=== PATIENT | female | born 1955 | race Caucasian/White ===

== ENCOUNTER 2018-10-10 08:25 | Day surgery (SDC) | payer BC ==
[~2018-10-10] VITALS: Ht 170.2 cm; Wt 88.9 kg
[2018-10-10] MEDS ORDERED: LACTATED RINGERS 1,000 ML IV SCH (09:03)
[2018-10-10] MEDS ORDERED: RIVA20TA PO (09:19)
[2018-10-10] MEDS ORDERED: CHOL100012 PO (09:19)
[2018-10-10] MEDS ORDERED: FERROUS SULFATE PO (09:19)
[2018-10-10] MEDS ORDERED: LOPRESSOR PO (09:19)
[2018-10-10] MEDS ORDERED: ASPI-496 PO (09:19)
[2018-10-10] MEDS ORDERED: ATORVASTATIN PO (09:19)
[2018-10-10 09:25] VITALS: BP 112/76
[2018-10-10 10:19] LABS: BASOPHILS # (AUTO) 0.02 x10^3/uL (0-0.1); BASOPHILS % (AUTO) 0 % (0-1); EOSINOPHILS # (AUTO) 0.04 x10^3/uL (0-0.4); EOSINOPHILS % (AUTO) 1 % (1-7); LYMPHOCYTES # (AUTO) 1.46 x10^3/uL (1-3.4); LYMPHOCYTES % (AUTO) 22 % (22-44); MD NO; MEAN CORPUSCULAR HEMOGLOBIN 24.1 pg (27.0-34.8); MEAN CORPUSCULAR HGB CONC 30.7 g/dL (32.4-35.8); MEAN CORPUSCULAR VOLUME 78.5 fL (80-100); MEAN PLATELET VOLUME 6.3 fL (7.4-10.4); MONOCYTES # (AUTO) 0.31 x10^3/uL (0.2-0.8); MONOCYTES % (AUTO) 5 % (2-9); NEUTROPHILS % (AUTO) 72 % (42-75); PLATELET COUNT 479 x10^3/uL (130-400); RED CELL DISTRIBUTION WIDTH 20.4 % (9.6-15.2)
[2018-10-10 10:30] LABS: INTERNATIONAL NORMALIZED RATIO 0.95 (0.93-1.1)
[2018-10-10 10:31] LABS: ANION GAP 6 mmol/L (5-15); CALCIUM 9.1 mg/dL (8.5-10.1); CHLORIDE 108 mmol/L (98-107)
[2018-10-10 10:36] LABS: ALANINE AMINOTRANSFERASE 15 U/L (12-78); ALKALINE PHOSPHATASE 136 U/L (45-117); BILIRUBIN,TOTAL 0.4 mg/dL (0.2-1.0); CREATININE 0.56 mg/dL (0.55-1.02); TOTAL PROTEIN 6.9 g/dL (6.4-8.2)
[2018-10-10] MEDS ORDERED: BUPIVACAINE/PF 0.25% ONE (13:48)
[2018-10-10] MEDS ORDERED: HEPARIN 5,000 UNITS/ML, 1ML ONE (13:48)
[2018-10-10] MEDS ORDERED: EPINEPHRINE 1 MG/ML, 1ML ONE (13:49)
[2018-10-10] MEDS ORDERED: MIDAZOLAM 1 MG/ML, 2ML ONE (13:56)
[2018-10-10] MEDS ORDERED: ONDANSETRON 2MG/ML, 2ML ONE (13:58)
[2018-10-10] MEDS ORDERED: DEXAMETHASONE 4 MG/ML, 1ML ONE (13:58)
[2018-10-10] MEDS ORDERED: PROPOFOL 10 MG/ML, 20ML ONE (13:58)
[2018-10-10] MEDS ORDERED: VANCOMYCIN 500 MG ONE (14:25)
[2018-10-10] MEDS ORDERED: HYDROmorphone 2 MG/ML, 1ML IVPush PRN (14:30)
[2018-10-10] MEDS ORDERED: KETOROLAC 30 MG/1 ML IV PRN ×2 (14:30)
[2018-10-10] MEDS ORDERED: FENTANYL PF 100 MCG/2ML IV PRN (14:30)
[2018-10-10] MEDS ORDERED: KETOROLAC 30 MG/1 ML IM PRN ×2 (14:30)
[2018-10-10] MEDS ORDERED: MORPHINE SULFATE 4 MG/ML, 1ML IVPush PRN (14:30)
[2018-10-10] MEDS ORDERED: MEPERIDINE/PF 25MG/0.5ML IVPush PRN (14:30)
[2018-10-10] MEDS ORDERED: ACETAMINOPHEN 325 MG TABLET PO PRN (14:30)
[2018-10-10] MEDS ORDERED: HYDROcodone/APAP 7.5-325MG/15ML UDC PO PRN (14:30)
[2018-10-10] MEDS ORDERED: OXYcodone 5 MG/5 ML ORAL.SOL UDC PO PRN (14:30)
[2018-10-10] MEDS ORDERED: FENTANYL PF 100 MCG/2ML ONE (14:55)
[2018-10-10] MEDS ORDERED: VISIPAQUE 270 MG/ML, 50ML BOTTLE ONE (15:07)
[2018-10-10] MEDS ORDERED: OXYcodone 5 MG/5 ML ORAL.SOL UDC ONE (15:14)
[2018-10-10] MEDS ORDERED: ACETAMINOPHEN 650 MG/20.3 ML UDC ONE (15:14)
== END 2018-10-10 16:55 | disposition home or self-care (01) ==
LOC: OUT 08:25
PROVIDERS: ATTEND Specialist
DX: Z45.2 Encounter for adjustment and management of vascular access device (principal); C56.9 Malignant neoplasm of unspecified ovary; I10 Essential (primary) hypertension; I48.91 Unspecified atrial fibrillation; E78.5 Hyperlipidemia, unspecified; Z98.890 Other specified postprocedural states; Z86.718 Personal history of other venous thrombosis and embolism; Z79.82 Long term (current) use of aspirin; Z87.891 Personal history of nicotine dependence
CPT/HCPCS: 36415; 36561; 77001; 80053; 85025; 85610; 85730; 93005; C1788; J0171; J1100; J1644; J2250; J2405; J2704; J3010; J3370; J3490; Q9966

== ENCOUNTER → 2021-01-03 | Outpatient (CLI) | payer BC ==
[~2021-01-03] MED LIST: ASPI-496 PO; ATORVASTATIN PO; CHOL100012 PO; FERROUS SULFATE PO; LOPRESSOR PO; METO50TA82 PO; MULT-658 PO; RIVA20TA PO
[2021-01-03 08:41] LABS: BASOPHILS % (AUTO) 1 % (0-1); EOSINOPHILS % (AUTO) 1 % (1-7); LYMPHOCYTES % (AUTO) 27 % (22-44); MEAN CORPUSCULAR HGB CONC 34.4 g/dL (32.4-35.8); MEAN PLATELET VOLUME 7.9 fL (7.4-10.4); MONOCYTES % (AUTO) 6 % (2-9); NEUTROPHILS % (AUTO) 65 % (42-75); PLATELET COUNT 172 x10^3/uL (130-400); RED BLOOD COUNT 4.99 x10^6/uL (3.82-5.3); RED CELL DISTRIBUTION WIDTH 14.2 % (9.6-15.2)
[2021-01-03 08:44] LABS: INTERNATIONAL NORMALIZED RATIO 1.17 (0.93-1.1); PROTHROMBIN TIME 12.4 Seconds (9.6-11.5)
[2021-01-03 08:50] LABS: ALANINE AMINOTRANSFERASE 48 U/L (12-78); ANION GAP 8 mmol/L (5-15); CALCIUM 9.5 mg/dL (8.5-10.1); CHLORIDE 110 mmol/L (98-107); CREATININE 0.61 mg/dL (0.55-1.02)
[2021-01-03 08:53] LABS: ALKALINE PHOSPHATASE 78 U/L (45-117); BILIRUBIN,TOTAL 1.1 mg/dL (0.2-1.0); TOTAL PROTEIN 7.3 g/dL (6.4-8.2)
== END | disposition home or self-care (01) ==
LOC: STAR 07:22
PROVIDERS: ATTEND Specialist
DX: Z01.818 Encounter for other preprocedural examination (principal); C78.00 Secondary malignant neoplasm of unspecified lung; C56.2 Malignant neoplasm of left ovary; I82.890 Acute embolism and thrombosis of other specified veins; G62.0 Drug-induced polyneuropathy; Z79.01 Long term (current) use of anticoagulants; Z20.822 Contact with and (suspected) exposure to COVID-19
CPT/HCPCS: 36415; 71046; 80053; 85025; 85610; 85730; 93005; U0003; U0005

== ENCOUNTER 2021-01-07 06:30 | Day surgery (SDC) | payer BC ==
[~2021-01-07] VITALS: Ht 170.2 cm; Wt 117.9 kg
[2021-01-07] MEDS ORDERED: BUPIVACAINE/PF 0.25% ONE (06:50)
[2021-01-07 07:10] VITALS: BP 140/89
[2021-01-07] MEDS ORDERED: CHLORHEXIDINE 15 ML UDC ONE (07:16)
[2021-01-07] MEDS ORDERED: LACTATED RINGERS 1,000 ML IV SCH (07:30)
[2021-01-07] MEDS ORDERED: CHLORHEXIDINE 15 ML UDC PO ONE (07:30)
[2021-01-07] MEDS ORDERED: CEFOTETAN PMX 2GM/50ML 50 ML IVPB ONE (07:30)
[2021-01-07] MEDS ORDERED: FENTANYL PF 100 MCG/2ML ONE (08:49)
[2021-01-07] MEDS ORDERED: LABETALOL 5MG/ML, 20ML IV PRN (09:30)
[2021-01-07] MEDS ORDERED: FENTANYL PF 100 MCG/2ML IV PRN (09:30)
[2021-01-07] MEDS ORDERED: ONDANSETRON 2MG/ML, 2ML IVPush PRN (09:30)
[2021-01-07] MEDS ORDERED: ACETAMINOPHEN 325 MG TABLET PO PRN (09:30)
[2021-01-07] MEDS ORDERED: METHOCARBAMOL 1,000 MG in DEXTROSE 5% 100 ML IV PRN (09:30)
[2021-01-07] MEDS ORDERED: PROMETHAZINE 25 MG/ML, 1ML IVPush PRN (09:30)
[2021-01-07] MEDS ORDERED: hydrALAzine 20 MG/ML, 1ML IV PRN (09:30)
[2021-01-07] MEDS ORDERED: HYDROmorphone 1 MG/ML, 1ML INJ IVPush PRN (09:30)
[2021-01-07] MEDS ORDERED: OXYcodone 5 MG/5 ML ORAL.SOL UDC PO PRN (09:30)
[2021-01-07] MEDS ORDERED: CEFAZOLIN 1,000 MG ONE (09:45)
[2021-01-07] MEDS ORDERED: PROPOFOL 10 MG/ML, 20ML ONE (09:45)
[2021-01-07] MEDS ORDERED: DEXAMETHASONE 4 MG/ML, 1ML ONE (09:45)
[2021-01-07] MEDS ORDERED: ONDANSETRON 2MG/ML, 2ML ONE (09:45)
== END 2021-01-07 11:15 | disposition home or self-care (01) ==
LOC: OUT 06:30
PROVIDERS: ATTEND Specialist
DX: Z45.2 Encounter for adjustment and management of vascular access device (principal); I10 Essential (primary) hypertension; E78.5 Hyperlipidemia, unspecified; I48.91 Unspecified atrial fibrillation; Z79.01 Long term (current) use of anticoagulants; Z79.82 Long term (current) use of aspirin; Z79.899 Other long term (current) drug therapy; Z85.43 Personal history of malignant neoplasm of ovary; Z92.21 Personal history of antineoplastic chemotherapy; Z90.710 Acquired absence of both cervix and uterus; Z90.722 Acquired absence of ovaries, bilateral; Z90.49 Acquired absence of other specified parts of digestive tract; Z80.3 Family history of malignant neoplasm of breast
CPT/HCPCS: 36590; J0690; J1100; J2405; J2704; J3010; J7120